=== PATIENT | male | born 1930 | race Caucasian/White ===

== ENCOUNTER 2017-04-18 12:53 | Emergency (ER) | payer OTHER, MEDICARE ==
[~2017-04-18] VITALS: Ht 188 cm; Wt 96.2 kg
[~2017-04-18 12:53] MED LIST: LEVOTHYROXINE125 MCG PO; LOMOTIL 2.5-0.1 EACH PO; METOPROLOL TART50 M1 PO
[2017-04-18 13:11] LABS: ABSOLUTE BASOPHIL COUNT 0 /CUMM (0.0-0.2); ABSOLUTE EOSINOPHIL COUNT 0.3 /CUMM (0.0-0.7); ABSOLUTE GRANULOCYTE CT 4.6 /CUMM (1.4-6.5); ABSOLUTE LYMPH COUNT 1.5 /CUMM (1.2-3.4); ABSOLUTE MONOCYTE COUNT 0.6 /CUMM (0.10-0.60); BASOPHIL % 0.3 % (0.0-2.0); EOSINOPHIL % 3.8 % (0-5); HEMATOCRIT 42.1 % (42-52); MEAN CORPUSCULAR HGB 31.8 PG (27.0-31.0); MEAN CORPUSCULAR HGB CONC 33.1 G/DL (33.0-37.0); MEAN CORPUSCULAR VOLUME 96.1 FL (80.0-94.0); MEAN PLATELET VOLUME 9.1 FL (7.4-10.4); PLATELET COUNT 184 /CUMM (130-400); RBC DISTRIBUTION WIDTH 14.4 % (11.5-14.5); RED BLOOD CELL CT 4.38 /CUMM (4.70-6.10)
[2017-04-18 13:25] LABS: PT 11.5 SEC (9.4-12.5); PTT 31 SEC (25-37)
--- NOTE | 2017-04-18 15:21 | ED GI/GU/ABDOMINAL COMPLAINT ---
History of Present Illness General Chief Complaint: General Adult Stated Complaint: RENÉE CAREY, GI BLEED Source: patient Exam Limitations: no limitations Vital Signs & Intake/Output Vital Signs & Intake/Output Vital Signs Date Time Temp Pulse Resp B/P B/P Pulse O2 O2 Flow FiO2 Mean Ox Delivery Rate 04/18 1625 59 164/79 04/18 1545 66 18 159/78 97 Room Air 04/18 1452 Room Air 04/18 1415 58 17 153/83 97 Room Air 04/18 1259 98.6 75 18 174/89 98 Room Air Allergies Coded Allergies: NO KNOWN ALLERGIES (11/28/13) Reconcile Medications Diphenoxylate HCl/Atropine (Lomotil 2.5-0.025 MG Tablet) 2.5 MG-0.025 MG TABLET 1 TAB PO 4 TIMES/DAY diarrhea Levothyroxine Sodium 125 MCG TABLET 1 TAB PO DAILY THYROID (Reported) Metoprolol Tartrate 50 MG TABLET 1 TAB PO BID HTN (Reported) Triage Note: 86 YO MALE SENT TO ER BY DR CAREY FOR LOWER GI BLEED. PT STATES HE HAS 1 EPISODE OF BLOOD IN THE TOILET THIS AM. C/O PAIN TO LOWER BACK. DENIES NV. Triage Nurses Notes Reviewed? yes Onset: Abrupt Duration: day(s): (2), changing over time, continues in ED Timing: single episode today Quality/Severity: cramping, dullness Severity Numbers: 6 Location: left lower quadrant, right lower quadrant Radiation: no radiation Activities at Onset: none Prior Abdominal Problems: none Past Sexual History: Unobtainable at this time No Modifying Factors: none Modifying Factors: Worsens With: movement, palpation. Associated Symptoms: abdominal pain, BRIGHT RED BLOOD IN STOOL, BACK PAIN HPI: 86-year-old male past medical history of hypertension, hyperlipidemia presents for evaluation of blood in his stool. Patient states that on 3 occasions over the past 2 days when he's had bowel movements he has noticed bright red blood in the stool. He states that it is in the toilet and on the toilet paper. He denies that his stools are black. He does report that he has had this in the past sometimes when he's been straining to go to the bathroom however he has not been straining recently. He reports associated bilateral lower abdominal pain and lower back pain. He states that he slipped on grass earlier today and fell right on his butt over the pain was present before that. Pain is worse with movement or touching the area. He denies any chest pain shortness of breath, fever, nausea, diarrhea, melena, weakness, dizziness, lightheadedness. He does not take any blood thinners. (Maximino Holils) Past History Travel History Traveled to [place] past 21 day No Medical History Any Pertinent Medical History? see below for history Neurological: NONE EENT: NONE Cardiovascular: hypertension, CHOL Respiratory: NONE Gastrointestinal: GIB Hepatic: NONE Renal: polycystic kidney disease Musculoskeletal: NONE Psychiatric: NONE Endocrine: hypothyroidism Blood Disorders: AAA Cancer(s): prostate cancer Surgical History Surgical History: none Psychosocial History What is your primary language Luxembourgish Tobacco Use: Never used Family History Hx Contributory? No (Maximino Hollis) Review of Systems Review of Systems Constitutional: Reports: no symptoms. EENTM: Reports: no symptoms. Respiratory: Reports: no symptoms. Cardiovascular: Reports: no symptoms. GI: Reports: see HPI, abdominal pain, bloody stool. Genitourinary: Reports: no symptoms. Musculoskeletal: Reports: see HPI, back pain. Skin: Reports: no symptoms. Neurological/Psychological: Reports: no symptoms. Hematologic/Endocrine: Reports: no symptoms. Immunologic/Allergic: Reports: no symptoms. All Other Systems: Reviewed and Negative (Maximino Hollis) Physical Exam Physical Exam General Appearance: well developed/nourished, no apparent distress, alert, awake Head: atraumatic, normal appearance Eyes: Bilateral: normal appearance, PERRL, EOMI. Ears, Nose, Throat, Mouth: hearing grossly normal, moist mucous membrane Neck: normal inspection, supple, full range of motion Respiratory: normal breath sounds, chest non-tender, no respiratory distress, lungs clear Cardiovascular: regular rate/rhythm, normal peripheral pulses Peripheral Pulses: 2+ radial (R), 2+ radial (L) Gastrointestinal: normal bowel sounds, soft, no organomegaly, tenderness (MILD LLQ, RLQ ) Rectal: normal inspection, normal rectal tone, heme positive stool, LIGHT BROWN STOOL HEME POSITIVE. nO GROSS BLOOD NO MASSES Back: normal inspection, normal range of motion, LUMBAR PARASPINOUS MUSCLES TENDER TO PALPATION BILATERALLY. nO MIDLINE PAIN. nO ABRASIONS BRUISING OR SWELLING. nO STEP-OFFS OR DEFORMITIES Extremities: normal range of motion Neurologic/Psych: no motor/sensory deficits, awake, alert, oriented x 3, normal gait Skin: intact, normal color, warm/dry Core Measures ACS in differential dx? No Sepsis Present: No Sepsis Focused Exam Completed? No (Maximino Hollis) Progress Differential Diagnosis: AAA, appendicitis, biliary colic, bowel obstruction, colon cancer, diverticulitis, gastritis, peptic ulcer, PUD/GERD, SBO, ureterolithiasis, UTI/pyelo, PROSTATE CANCER, BONE MALIGNANCY/METASTASIS, FRACTURE, HEMORRHOIDS, avm, Diagnostic Imaging: Viewed by Me: CT Scan. Discussed w/RAD: CT Scan. Radiology Impression: PATIENT: EDUMNDO CARNES PRESENT AGE: 86 PATIENT ACCOUNT NO: [id number] : 32 LOCATION: [facility] ORDERING PHYSICIAN: Maximino DRAPER SERVICE DATE: 04/18/17 EXAM TYPE: CAT - CT ABD & PELVIS W/O IV CONTRAS EXAMINATION: CT ABDOMEN AND PELVIS WITHOUT CONTRAST CLINICAL INFORMATION: Low back pain. Left lower quadrant abdominal pain. History of prostate cancer. COMPARISON: CT abdomen and pelvis of 02/17/2016 and 2006. TECHNIQUE: Multidetector volumetric imaging was performed from the superior aspect of the liver through the pubic symphysis. Sagittal and coronal reformatted images were obtained on the technologist's workstation. DLP: 696.34 mGy-cm FINDINGS: LUNG BASES: The visualized lung bases are unremarkable. LIVER, GALLBLADDER, AND BILIARY TREE: The liver is normal in size, shape, and attenuation. No focal hepatic lesion or biliary ductal dilatation is present. The gallbladder is physiologically distended. A tiny curvilinear calcification is noted in the gallbladder neck which is a new finding compared to previous study. No evidence of gallbladder wall thickening or pericholecystic inflammatory changes. PANCREAS: Unremarkable. SPLEEN: Unremarkable. ADRENAL GLANDS: Unremarkable. KIDNEYS AND URETERS: Note is again made of enlarged polycystic kidneys with rim calcification along the wall of one of the cysts in the mid left kidney anteriorly (series 2 image 25) is a stable finding. The largest cyst in the right kidney measures 13 cm in maximum dimension and the largest cyst in the left kidney measures 9.7 cm in maximum dimension. No evidence of radiopaque urinary tract calculi or hydronephrosis. No hydroureter. BLADDER: Underdistended and therefore not optimally evaluated. A small bladder diverticulum is noted from the right posterior lateral wall of the bladder measuring 1.3 cm. No evidence of bladder calculi. GASTROINTESTINAL TRACT: The small and large bowel are unremarkable. Specifically there is no evidence of colonic diverticulosis, colonic wall thickening or pericolonic fat stranding. The appendix is unremarkable. The stomach is partially distended and unremarkable. ABDOMINAL WALL: Small umbilical hernia containing fat. LYMPH NODES : No pathologically enlarged lymph nodes are seen. VASCULAR: Moderate calcific atherosclerosis of the aortoiliac vessels. The distal abdominal aorta is ectatic. Maximum AP diameter of the distal abdominal aorta is 3.7 cm. Surgical clips are noted along the distal abdominal aorta anteriorly which is a stable finding, correlate with surgical history. PELVIC VISCERA: The prostate is surgically absent. Multiple surgical clips are noted in the surgical bed. No evidence of recurrent mass. OSSEOUS STRUCTURES: No acute or suspicious osseous abnormality is noted. Subarticular cystic change in the left femoral head ( series 2 image 74) is a stable finding. Moderate facet arthropathy is noted at L3-L4 and L4-L5 with moderate central canal stenosis. There is stable grade 1 retrolisthesis of L4 over L5. No acute or suspicious osseous lesions. The osseous structures are essentially stable in appearance compared to last study. IMPRESSION: 1. No evidence of colonic diverticulosis or acute diverticulitis. No evidence of colitis. 2. No acute abnormality. 3. Postsurgical changes of prostatectomy. No evidence of recurrent mass in the surgical bed. No evidence of metastatic disease within the limits of noncontrast study. 4. Stable known finding of polycystic kidney disease. 5. 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 6. New tiny gallstone in the neck of the gallbladder. No CT evidence of acute cholecystitis. DICTATED BY: Bronson MCKENZIE,Anal DATE/TIME DICTATED:04/18/171454 GRAVITY PROSPECTOR: MOISES DATE/TIME TRANSCRIBED:04/18/171454 CONFIDENTIAL, DO NOT COPY WITHOUT APPROPRIATE AUTHORIZATION. Initial ED EKG: none (Maximino Hollis) Plan of Care: Orders Procedure Date/time Status URINALYSIS 04/18 1600 Complete MISTAKE 04/18 1300 Active PARTIAL THROMBOPLASTIN TIME 04/18 1259 Complete PROTHROMBIN TIME 04/18 1259 Complete COMPREHENSIVE METABOLIC PANEL 04/18 1259 Complete CBC WITHOUT DIFFERENTIAL 04/18 1259 Complete TYPE & SCREEN (NOT X-MATCH) 04/18 1259 Complete Laboratory Tests 04/18/17 1613: Urine Color YEL, Urine Clarity CLEAR, Urine pH 6.0, Ur Specific Cofield 1.015, Urine Protein TRACE H, Urine Ketones NEG, Urine Nitrite NEG, Urine Bilirubin NEG, Urine Urobilinogen 0.2, Ur Leukocyte Esterase NEG, Ur Microscopic SEDIMENT EXAMINED, Urine RBC RARE, Urine Hemoglobin NEG, Urine Glucose NEG 04/18/17 1303: Anion Gap 14, Estimated GFR 45 L, BUN/Creatinine Ratio 18.0, Glucose 89, Calcium 9.3, Total Bilirubin 0.4, AST 34, ALT 48, Alkaline Phosphatase 105, Total Protein 6.8, Albumin 3.9, Globulin 2.9, Albumin/Globulin Ratio 1.3, PT 11.5, INR 1.10, APTT 31, CBC w Diff NO MAN DIFF REQ, RBC 4.38 L, MCV 96.1 H, MCH 31.8 H, RDW 14.4, MPV 9.1, Gran % 66.0, Lymphocytes % 21.9, Monocytes % 8.0 , Eosinophils % 3.8, Basophils % 0.3, Absolute Granulocytes 4.6, Absolute Lymphocytes 1.5, Absolute Monocytes 0.6, Absolute Eosinophils 0.3, Absolute Basophils 0, PUBS MCHC 33.1 Patient seen and evaluated. He reports 3 episodes of bright red blood in his stool over the past 2 days. He also reports some lower back pain and lower abdominal pain. He is currently nontoxic appearing and states she is feeling well. No dizziness or light headedness. Rectal exam is positive for occult blood. No black stool. Patient is not anticoagulated. Vital signs are stable. Blood work is stable including a hemoglobin of 13.9 and hematocrit of 14.2. he is not coagulopathic. We'll check orthostatics and a CT scan of the abdomen and pelvis to rule out fracture from the fall bone metastasis and diverticulitis. CT scan is within normal limits. case discussed with dr tomlinson from gi. he will see the pt at 11am on sunday. he feels outpt woork up is appropriate. pt is not orthostatic. not anticoagulated. no kesha blood or clots on exam. pt appears well. reviewed all results with pt. advised rest fluids. moniotr symptoms closely. return with any concens immeidatly. pt appears clinically well and agrees with the plan. case discussed with dr guerra he agrees. (Maximino Hollis) (Kendy MCKENZIE,Kimani Silver) Departure Departure Disposition: HOME OR SELF CARE Condition: Stable Clinical Impression Primary Impression: GI bleeding Qualifiers: GI bleed type/associated pathology: unspecified gastrointestinal hemorrhage type Qualified Code: K92.2 - Gastrointestinal hemorrhage, unspecified Referrals: Sarah MCKENZIE,Edward Carey MD,Chaim Murcia (PCP/Family) Additional Instructions: Rest and drink plenty of fluids. Follow-up with Dr. Marquez clinical orthoptist this Sunday at 11 AM. His contact information is attached. Monitor symptoms closely. If you have worsening bleeding lightheadedness dizziness chest pain shortness of breath worsening pain or any other concerns return to the emergency department. Tylenol as needed for pain. Departure Forms: Customer Survey General Discharge Information (Maximino Hollis) PA/LABOR RELATIONS ANALYST Co-Sign Statement Statement: ED Attending supervision documentation- [] I saw and evaluated the patient. I have also reviewed all the pertinent lab results and diagnostic results. I agree with the findings and the plan of care as documented in the PA's/LABOR RELATIONS ANALYST's documentation. Patient presents for evaluation of bright red rectal bleeding. Physical examination reveals nondistended nontender abdomen. [] I have reviewed the ED Record and agree with the PA's/LABOR RELATIONS ANALYST's documentation. [] Additions or exceptions (if any) to the PAs/LABOR RELATIONS ANALYST's note and plan are summarized below: [] (Kendy MCKENZIE,Kimani Silver)
--- NOTE | 2017-04-18 16:12 | CT SCAN REPORT ---
EXAMINATION: CT ABDOMEN AND PELVIS WITHOUT CONTRAST CLINICAL INFORMATION: Low back pain. Left lower quadrant abdominal pain. History of prostate cancer. COMPARISON: CT abdomen and pelvis of 02/17/2016 and 08/08/2006. TECHNIQUE: Multidetector volumetric imaging was performed from the superior aspect of the liver through the pubic symphysis. Sagittal and coronal reformatted images were obtained on the technologist's workstation. DLP: 696.34 mGy-cm FINDINGS: LUNG BASES: The visualized lung bases are unremarkable. LIVER, GALLBLADDER, AND BILIARY TREE: The liver is normal in size, shape, and attenuation. No focal hepatic lesion or biliary ductal dilatation is present. The gallbladder is physiologically distended. A tiny curvilinear calcification is noted in the gallbladder neck which is a new finding compared to previous study. No evidence of gallbladder wall thickening or pericholecystic inflammatory changes. PANCREAS: Unremarkable. SPLEEN: Unremarkable. ADRENAL GLANDS: Unremarkable. KIDNEYS AND URETERS: Note is again made of enlarged polycystic kidneys with rim calcification along the wall of one of the cysts in the mid left kidney anteriorly (series 2 image 25) is a stable finding. The largest cyst in the right kidney measures 13 cm in maximum dimension and the largest cyst in the left kidney measures 9.7 cm in maximum dimension. No evidence of radiopaque urinary tract calculi or hydronephrosis. No hydroureter. BLADDER: Underdistended and therefore not optimally evaluated. A small bladder diverticulum is noted from the right posterior lateral wall of the bladder measuring 1.3 cm. No evidence of bladder calculi. GASTROINTESTINAL TRACT: The small and large bowel are unremarkable. Specifically there is no evidence of colonic diverticulosis, colonic wall thickening or pericolonic fat stranding. The appendix is unremarkable. The stomach is partially distended and unremarkable. ABDOMINAL WALL: Small umbilical hernia containing fat. LYMPH NODES: No pathologically enlarged lymph nodes are seen. VASCULAR: Moderate calcific atherosclerosis of the aortoiliac vessels. The distal abdominal aorta is ectatic. Maximum AP diameter of the distal abdominal aorta is 3.7 cm. Surgical clips are noted along the distal abdominal aorta anteriorly which is a stable finding, correlate with surgical history. PELVIC VISCERA: The prostate is surgically absent. Multiple surgical clips are noted in the surgical bed. No evidence of recurrent mass. OSSEOUS STRUCTURES: No acute or suspicious osseous abnormality is noted. Subarticular cystic change in the left femoral head (series 2 image 74) is a stable finding. Moderate facet arthropathy is noted at L3-L4 and L4-L5 with moderate central canal stenosis. There is stable grade 1 retrolisthesis of L4 over L5. No acute or suspicious osseous lesions. The osseous structures are essentially stable in appearance compared to last study. IMPRESSION: 1. No evidence of colonic diverticulosis or acute diverticulitis. No evidence of colitis. 2. No acute abnormality. 3. Postsurgical changes of prostatectomy. No evidence of recurrent mass in the surgical bed. No evidence of metastatic disease within the limits of noncontrast study. 4. Stable known finding of polycystic kidney disease. 5. 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 6. New tiny gallstone in the neck of the gallbladder. No CT evidence of acute cholecystitis.
[2017-04-18 17:17] VITALS: BP 179/69
== END 2017-04-18 17:25 ==
LOC: ERH 12:53
PROVIDERS: Physician Assistant Medical
DX: K92.2 Gastrointestinal hemorrhage, unspecified (principal)
CPT/HCPCS: 74176; 81001

== ENCOUNTER 2017-04-26 14:36 | Emergency (ER) | payer OTHER, MEDICARE ==
[~2017-04-26] VITALS: Ht 182.9 cm; Wt 95.3 kg
--- NOTE | 2017-04-26 14:49 | ED GENERAL ADULT ---
History of Present Illness General Chief Complaint: Abdominal Pain/Flank Pain Stated Complaint: ABD PAIN S/P COLONOSCOPY Source: patient, family Exam Limitations: poor historian Vital Signs & Intake/Output Vital Signs & Intake/Output Vital Signs Date Time Temp Pulse Resp B/P B/P Pulse O2 O2 Flow FiO2 Mean Ox Delivery Rate 04/26 1637 97.7 78 18 158/85 98 Room Air 04/26 1441 98 Room Air Room Air 04/26 1437 95.7 59 18 146/75 98 Room Air Room Air Allergies Coded Allergies: NO KNOWN ALLERGIES (04/26/17) Reconcile Medications Cholestyramine (With Sugar) (Cholestyramine Powder) (Unknown Strength) POWDER (Unknown Dose) PO BID CHOLESTEROL (Reported) Levothyroxine Sodium 125 MCG TABLET 1 TAB PO DAILY THYROID (Reported) Metoprolol Tartrate 50 MG TABLET 1 TAB PO BID HTN (Reported) Triage Note: PT TO ED FROM GI SUITE S/P COLONOSCOPY, PER GI NURSES PT HAS DISTENDED ABD, RECTAL TUBE IN PLACE AND HAS PASSED GAS SINCE TESTING, PAIN WENT FROM 10/10 TO 6/10 UPON ARRIVAL TO ED. Triage Nurses Notes Reviewed? yes Onset: Abrupt Duration: hour(s): Timing: recent history HPI: 04/26/17 86-year-old man presents to the emergency department from the GI suite for abdominal discomfort and to exclude intestinal perforation. The patient underwent colonoscopy, and had postoperative pain and distention. In the emergency department he denies any abdominal pain. His abdomen is minimally distended but nontender. Past History Travel History Traveled to [place] past 21 day No Medical History Any Pertinent Medical History? see below for history Neurological: NONE EENT: NONE Cardiovascular: hypertension, CHOL Respiratory: NONE Gastrointestinal: GIB Hepatic: NONE Renal: polycystic kidney disease Musculoskeletal: NONE Psychiatric: NONE Endocrine: hypothyroidism Blood Disorders: AAA Cancer(s): prostate cancer Surgical History Surgical History: none Psychosocial History What is your primary language Kosovan Tobacco Use: Quit >30 days ago ETOH Use: denies use Illicit Drug Use: denies illicit drug use Family History Hx Contributory? No Review of Systems Review of Systems Constitutional: Denies: fever. EENTM: Denies: visual changes. Respiratory: Denies: short of breath. Cardiovascular: Denies: chest pain. GI: Reports: abdominal pain. Genitourinary: Reports: no symptoms. Musculoskeletal: Reports: no symptoms. Skin: Denies: rash. Neurological/Psychological: Reports: no symptoms. Hematologic/Endocrine: Reports: no symptoms. Immunologic/Allergic: Reports: no symptoms. Physical Exam Physical Exam General Appearance: alert, awake, anxious, mild distress Head: atraumatic, normal appearance Eyes: Bilateral: normal appearance, PERRL, EOMI. Ears, Nose, Throat: normal pharynx, normal ENT inspection Neck: normal inspection, supple, full range of motion Respiratory: normal breath sounds, chest non-tender, no respiratory distress Cardiovascular: regular rate/rhythm Peripheral Pulses: 4+ radial (R), 4+ radial (L) Gastrointestinal: soft, non-tender, mmild distention Back: decreased range of motion Extremities: normal inspection, pedal edema Neurologic/Psych: awake, alert Skin: intact, normal color, warm/dry Core Measures ACS in differential dx? No CVA/TIA Diagnosis: No Sepsis Present: No Sepsis Focused Exam Completed? No Progress Differential Diagnoses I considered the following diagnoses in my evaluation of the patient: [ Intestinal perforation,] post-colonoscopy distention, incarcerated hernia Plan of Care: Orders Procedure Date/time Status Saline Lock 04/26 1459 Active COMPREHENSIVE METABOLIC PANEL 04/26 1459 Complete CBC WITHOUT DIFFERENTIAL 04/26 1459 Complete Current Medications Sig/Johnathan Start time Last Medication Dose Stop Time Status Admin Ceftriaxone Sodium 1,000 MG ONCE ONE 04/26 1530 CAN (Rocephin) 04/26 1531 Sodium Chloride 2,857.62 ML ONCE ONE 04/26 1530 CAN (Normal Saline 0.9%) 04/26 1531 Laboratory Tests 04/26/17 1536: Anion Gap 14, Estimated GFR 39 L, BUN/Creatinine Ratio 20.0, Glucose 195 H, Calcium 8.8, Total Bilirubin 0.3, AST 28, ALT 38, Alkaline Phosphatase 109, Total Protein 6.4, Albumin 3.7, Globulin 2.7, Albumin/Globulin Ratio 1.4, CBC w Diff NO MAN DIFF REQ, RBC 4.41 L, MCV 96.2 H, MCH 32.1 H, MCHC 33.4, RDW 14.4 , MPV 9.6, Gran % 81.9 H, Lymphocytes % 11.3 L, Monocytes % 5.1, Eosinophils % 1.2, Basophils % 0.5, Absolute Granulocytes 5.3, Absolute Lymphocytes 0.7 L, Absolute Monocytes 0.3, Absolute Eosinophils 0.1, Absolute Basophils 0 Initial ED EKG: none Departure Departure Disposition: HOME OR SELF CARE Condition: Stable Clinical Impression Primary Impression: Abdominal pain Referrals: Chaim Ivan MD (PCP/Family) Departure Forms: Customer Survey General Discharge Information Comments PATIENT: DEMUNDO CARNES PRESENT AGE: 86 PATIENT ACCOUNT NO: [id number] : 32 LOCATION: ER ORDERING PHYSICIAN: Kimani Duncan DO SERVICE DATE: 04/26/17 EXAM TYPE: CAT - CT ABD & PELVIS W/O IV CONTRAS EXAMINATION: CT ABDOMEN AND PELVIS WITHOUT CONTRAST CLINICAL INFORMATION: Abdominal pain status post colonoscopy. COMPARISON: 04/18/2017. TECHNIQUE: Contiguous axial thin section helical images of the abdomen and pelvis were performed without oral or IV contrast. The data set was reformatted in the coronal and sagittal planes and reviewed on an independent workstation. DLP: 696 mGy-cm. FINDINGS: Several blebs are present within the right middle and lower lobes. The visualized lung bases are otherwise clear. The visualized portions of the heart are unremarkable. The liver is of normal size and attenuation without focal lesions nor intrahepatic biliary ductal dilation. There is a small calculus within the neck of the gallbladder. There is no wall thickening or discernible pericholecystic fluid. The spleen, pancreas, adrenal glands are unremarkable. There is neither hydronephrosis nor nephrolithiasis. Again identified are innumerable bilateral renal cysts. There is stable dilation to the distal abdominal aorta measuring approximately 3.7 cm in greatest sagittal AP dimension. There is no abdominal free fluid. There is neither mesenteric nor retroperitoneal lymphadenopathy. Normal unopacified loops of small and large bowel are identified. There is no pelvic free fluid. The urinary bladder is unremarkable. There is neither pelvic nor inguinal lymphadenopathy. Bone windows: Neither sclerotic nor lytic bone lesions are identified. IMPRESSION: No evidence for acute abdominal or pelvic inflammatory or infectious processes. No pneumoperitoneum. Innumerable bilateral renal cysts. Cholelithiasis without evidence of cholecystitis. 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 DICTATED BY: Ovidio May MD DATE/TIME DICTATED:04/26/171558 ROPEMAN:MOISES DATE/TIME TRANSCRIBED:04/26/171558 CONFIDENTIAL, DO NOT COPY WITHOUT APPROPRIATE AUTHORIZATION. <Electronically signed in Other Vendor System> SIGNED BY: Ovidio May MD 04/26/17 1608 Patient has no abdominal pain. No abdominal tenderness. No vomiting. CT scan results shown above. Care discussed with Dr. Marquez. The patient will follow -up with Dr. Marquez next week Reevaluation prior to discharge abdomen was soft and nontender. exam was unremarkable. No definite inguinal hernias were appreciated. No definite umbilical hernia was palpated. Critical Care Note Critical Care Note Critical Care Time: non-applicable
[2017-04-26] MEDS ORDERED: CHOLESTYRAMINE378 GM PO (15:39)
[2017-04-26 15:56] LABS: ABSOLUTE BASOPHIL COUNT 0 /CUMM (0.0-0.2); ABSOLUTE EOSINOPHIL COUNT 0.1 /CUMM (0.0-0.7); ABSOLUTE GRANULOCYTE CT 5.3 /CUMM (1.4-6.5); ABSOLUTE LYMPH COUNT 0.7 /CUMM (1.2-3.4); ABSOLUTE MONOCYTE COUNT 0.3 /CUMM (0.10-0.60); BASOPHIL % 0.5 % (0.0-2.0); EOSINOPHIL % 1.2 % (0-5); GRANULOCYTE % 81.9 % (42.2-75.2); HEMATOCRIT 42.4 % (42-52); MEAN CORPUSCULAR HGB 32.1 PG (27.0-31.0); MEAN CORPUSCULAR HGB CONC 33.4 G/DL (33.0-37.0); MEAN CORPUSCULAR VOLUME 96.2 FL (80.0-94.0); MEAN PLATELET VOLUME 9.6 FL (7.4-10.4); PLATELET COUNT 151 /CUMM (130-400); RBC DISTRIBUTION WIDTH 14.4 % (11.5-14.5); RED BLOOD CELL CT 4.41 /CUMM (4.70-6.10); WHITE BLOOD CELL COUNT 6.5 /CUMM (4.8-10.8)
--- NOTE | 2017-04-26 16:08 | CT SCAN REPORT ---
EXAMINATION: CT ABDOMEN AND PELVIS WITHOUT CONTRAST CLINICAL INFORMATION: Abdominal pain status post colonoscopy. COMPARISON: 04/18/2017. TECHNIQUE: Contiguous axial thin section helical images of the abdomen and pelvis were performed without oral or IV contrast. The data set was reformatted in the coronal and sagittal planes and reviewed on an independent workstation. DLP: 696 mGy-cm. FINDINGS: Several blebs are present within the right middle and lower lobes. The visualized lung bases are otherwise clear. The visualized portions of the heart are unremarkable. The liver is of normal size and attenuation without focal lesions nor intrahepatic biliary ductal dilation. There is a small calculus within the neck of the gallbladder. There is no wall thickening or discernible pericholecystic fluid. The spleen, pancreas, adrenal glands are unremarkable. There is neither hydronephrosis nor nephrolithiasis. Again identified are innumerable bilateral renal cysts. There is stable dilation to the distal abdominal aorta measuring approximately 3.7 cm in greatest sagittal AP dimension. There is no abdominal free fluid. There is neither mesenteric nor retroperitoneal lymphadenopathy. Normal unopacified loops of small and large bowel are identified. There is no pelvic free fluid. The urinary bladder is unremarkable. There is neither pelvic nor inguinal lymphadenopathy. Bone windows: Neither sclerotic nor lytic bone lesions are identified. IMPRESSION: No evidence for acute abdominal or pelvic inflammatory or infectious processes. No pneumoperitoneum. Innumerable bilateral renal cysts. Cholelithiasis without evidence of cholecystitis. 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
[2017-04-26 16:37] VITALS: BP 158/85
== END 2017-04-26 16:48 ==
LOC: ERH 14:36
PROVIDERS: Emergency Medicine
DX: R10.9 Unspecified abdominal pain (principal)
CPT/HCPCS: 74176